=== PATIENT | male | born 1975 | race African-American/Black ===

== ENCOUNTER 2019-09-12 19:14 | Emergency (ER) | payer OTHER ==
[~2019-09-12] VITALS: Ht 188 cm; Wt 122.5 kg
--- NOTE | 2019-09-12 19:20 | NUR ---
PT BIB [facility] AND [employer] WITH A C/O SI WITH A PLAN TO CUT HIS WRIST. PT WAS TRIAGED AND TAKEN TO ROOM #15. PT'S BELONGINGS WERE REMOVED AND PLACED IN A LOCKER. PT CHANGED INTO A GOWN. SITTER IS AT THE BEDSIDE.
[2019-09-12 19:44] LABS: BASOPHILS # (AUTO) 0.1 /CMM (0.0-0.2); BASOPHILS % (AUTO) 0.9 % (0.0-2.0); EOSINOPHILS % (AUTO) 0.7 % (0.0-6.0); HEMATOCRIT 46 % (39-51); HEMOGLOBIN 14.5 g/dL (13.5-17.5); LYMPHOCYTES # (AUTO) 1.9 /CMM (0.8-4.8); MEAN CORPUSCULAR HGB CONC 32 g/dl (31.0-36.0); MEAN CORPUSCULAR VOLUME 71 fL (80-96); MONOCYTES # (AUTO) 0.6 /CMM (0.1-1.30); NEUTROPHILS # (AUTO) 6.3 /CMM (1.8-8.9); NEUTROPHILS % (AUTO) 70.4 % (43.0-81.0); PLATELET COUNT (AUTO) 262 /CMM (150-450); RED BLOOD CELL COUNT(AUTO) 6.51 MIL/uL (4.5-6.0)
[2019-09-12 19:57] LABS: APPEARANCE,URINE Clear (CLEAR); BILIRUBIN,URINE SMALL (NEGATIVE); BLOOD, URINE Negative Ery/uL (NEGATIVE); COLOR,URINE YELLOW (YELLOW); KETONES,URINE Negative (NEGATIVE); LEUKOCYTE ESTERASE ,URINE Negative (NEGATIVE); NITRITE, URINE Negative (NEGATIVE); PROTEIN,URINE 30 mg/dl (NEGATIVE); UGLUCOSE Negative (NEGATIVE); UROBILINOGEN,URINE 0.2 EU/dL (0.2)
[2019-09-12 20:01] LABS: ALANINE AMINOTRANSFERASE 29 U/L (12-78); ALBUMIN 4.1 g/dL (3.4-5.0); ALCOHOL, BLOOD 7 mg/dL (0-0); ALKALINE PHOSPHATASE 80 U/L (46-116); ASPARTATE AMINOTRANSFERASE 37 U/L (15-37); BILIRUBIN,DIRECT 0.2 mg/dL (0.0-0.2); BILIRUBIN,TOTAL 0.7 mg/dL (0.2-1.0); CALCIUM, SERUM 9.3 mg/dL (8.5-10.1); CARBON DIOXIDE 26 mmol/L (21-32); CHLORIDE 99 mmol/L (98-107); CREATININE 1.4 mg/dL (0.6-1.3); GLUCOSE 90 mg/dL (74-106); POTASSIUM 3.3 mmol/L (3.5-5.1); SODIUM SERUM 135 mmol/L (136-145); TOTAL PROTEIN, SERUM 8.5 g/dL (6.4-8.2); UREA NITROGEN, BLOOD 11 mg/dL (7-18)
[2019-09-12 20:04] LABS: ACETAMINOPHEN < 2 ug/ml (10-30); SALICYLATE 0.5 mg/dL (2.8-20.0)
[2019-09-12 20:12] LABS: BACTERIA,URINE Rare /HPF (None Seen); RBC,URINE NONE SEEN /HPF (0-2); SQUAMOUS EPITHELIAL CELL,UR Few /HPF (None Seen); WBC,URINE NONE SEEN /HPF (0-3)
[2019-09-12] MEDS ORDERED: IV NS 0.9% 1,000 ML BAG IV ONE (20:30)
[2019-09-12] MEDS ORDERED: POTASSIUM CHLORIDE 20 MEQ TAB.PRT.SR PO ONE ×2 (20:30→20:46)
--- NOTE | 2019-09-13 03:57 | NUR ---
PT RESTING IN BED COMFORTABLY. NO ACUTE DISTRESS NOTED. VSS. SITTER AT BEDSIDE FOR SAFETY.
--- NOTE | 2019-09-13 05:20 | NUR ---
CLINICAL INFORMATION UNDER REVIEW AT [facility] PER [facility]
--- NOTE | 2019-09-13 06:37 | NUR ---
PT ACCEPTED AT [facility], NO BEDS AVAILABLE YET. INTAKE ADVISED TO CALL FOR REPORT AT 0830 AND ASK IF BED IS AVAILABLE. [id number] DR. IGLESIAS/MORAIMA
--- NOTE | 2019-09-13 09:56 | NUR ---
CALLED [facility] TO GIVE REPORT. PT WILL NEED TO STOP AT ER TO GET COVID TESTED. THEN WILL BE GOING TO ROOM 442. REPORT WAS GIVEN TO CHARGE NURSE MARIZOL AT [facility].
--- NOTE | 2019-09-13 10:15 | NUR ---
CALLED [facility] [employer] TRIP NUMBER [phone]. WILL CALL BACK FOR
--- NOTE | 2019-09-13 10:44 | NUR ---
patient resting, no distress noted.
--- NOTE | 2019-09-13 10:54 | NUR ---
per [place] at call the car, 1:15pm [facility]
--- NOTE | 2019-09-13 13:30 | NUR ---
[facility]. Written and verbal after care instructions given. Patient verbalizes understanding of instruction.
[2019-09-13 14:41] VITALS: BP 140/88
== END 2019-09-13 14:42 ==
LOC: ER 19:16
DX: R45.851 Suicidal ideations (principal); F15.10 Other stimulant abuse, uncomplicated; I10 Essential (primary) hypertension; F32.9 Major depressive disorder, single episode, unspecified; Z59.0 Homelessness
CPT/HCPCS: 36415; 80048; 80076; 80305; 80307; 80329; 81001; 85025; 99285; G0480; 81000-TC